=== PATIENT | female | born 1965 | race Two or more races ===

== ENCOUNTER → 2016-07-05 | Outpatient (CLI) | payer BC ==
[~2016-07-05] VITALS: Ht 8 cm; Wt 82.6 kg
[~2016-07-05] MED LIST: SYNTHROID150 MCG ORAL
[2016-07-05 15:33] VITALS: BP 110/59
--- NOTE | 2016-07-05 15:55 | GI Initial Consult Note ---
History of Present Illness General Date patient seen: Jul 05, 2016 Time patient seen: 15:49 Referring physician: ZEESHAN Reason for Consultation: LOWER ABDOMINAL / RECTAL PAIN Present Illness HPI 51 year old female patient referred by Dr. Colon for evaluation of lower abdominal pain associated with painful bowel movements with no noted melena nor hematochezia. The patient presents today c/o of lower abdominal pain, tender to touch associated with nausea and vomiting. The patient states she was previously on a diabetic medication that caused her pancreas to become inflame and cause her abdominal pain. She also complains of weakness in her left arm only. C/o of memory loss as well. States she has had an APCT done 4 days ago at [facility]. No prior history of colonoscopy. Home Meds Reported Medications Levothyroxine Sodium* (SYNTHROID*) 150 Mcg Tablet, 225 MCG ORAL DAILY, TAB Take in the morning on an empty stomach, at least 30 minutes before food. 07/05/16 Med list reviewed/reconciled: Yes Allergies: Coded Allergies: No Known Allergies (Unverified , 07/05/16) Patient History History Provided By: Patient PMH Narrative Arthritis Hypothyroidism Past Surgical History: none Social History: Reports: other - coffee, Denies: alcohol use, drug use, smoking Review of Systems All Other Systems: negative except mentioned in HPI Physical Exam Vital Signs Date Time Temp Pulse Resp B/P Pulse Ox O2 Delivery O2 Flow Rate FiO2 07/05/16 15:33 97.4 60 16 110/59 96 Sp02 EP Interpretation: reviewed General Appearance: alert Head: normocephalic EENT: PERRL/EOMI, normal ENT inspection Neck: supple Respiratory: normal breath sounds, no respiratory distress Cardiovascular: normal rate Gastrointestinal: normal inspection, non tender, soft Rectal: deferred Musculoskeletal: normal inspection Neurologic: normal inspection, alert, oriented x3, responsive Psychiatric: normal inspection, judgement/insight normal, memory normal Skin: normal inspection, normal color, no rash, warm/dry Lymphatic: normal inspection, no adenopathy GI: Plan Problems: (1) Colonoscopy planned (2) Rectal pain (3) Arthritis (4) Hypothyroidism (5) Nausea & vomiting Plan patient will be contacted for colonoscopy pending prior authorization. - CLD and [employer] prep instructions given and acknowledged. obtain APCT from [facility]. Seen with Dr. Vosoghi. Thank you for referring this patient. Haney,Merry Luisito N.P. Jul 05, 2016 15:55
== END | disposition home or self-care (01) ==
LOC: PAN 13:14
DX: R11.2 Nausea with vomiting, unspecified (principal); E03.9 Hypothyroidism, unspecified; K62.89 Other specified diseases of anus and rectum; M19.90 Unspecified osteoarthritis, unspecified site; R10.30 Lower abdominal pain, unspecified; R53.1 Weakness
CPT/HCPCS: 99201

== ENCOUNTER 2016-08-11 06:40 | Day surgery (SDC) | payer BC ==
[~2016-08-11] VITALS: Ht 165.1 cm; Wt 81.6 kg
[2016-08-11] VITALS (9 sets, daily range): BP systolic 98–119; BP diastolic 52–63
--- NOTE | 2016-08-11 06:48 | Anethesia Preoperative Eval ---
Anesthesia Pre-op PMH/ROS General Date of Evaluation: August 11, 2016 Anesthesiologist: stephanie ASA Score: ASA 2 Mallampati Score Class I : Soft palate, uvula, fauces, pillars visible Class II: Soft palate, uvula, fauces visible Class III: Soft palate, base of uvula visible Class IV: Only hard plate visible Mallampati Classification: Class II Surgeon: adrianna Diagnosis: anemia Surgical Procedure: colonoscopy Anesthesia History: none Social History: smoking - never smoked Family History: no anesthesia problems Allergies: Coded Allergies: No Known Allergies (Unverified , 07/05/16) Medications: see eMAR Past Medical History Gastrointestinal/Genitourinary: Reports: other - nausea, vomiting Endocrine: Reports: hypothyroidism Hematology/Immune: Reports: anemia Anesthesia Pre-op Phys. Exam Physician Exam Constitutional: NAD Neurologic: CN 2-12 intact Cardiovascular: RRR Respiratory: CTA Gastrointestinal: S/NT/ND Airway Exam Mallampati Score: Class II MO: full Neck: supple ROM: full Teeth: intact Anesthesia Pre-op A/P Studies Pre-op Studies: EKG - sinus bradycardiac Risk Assessment & Plan Assessment: anemia Plan: colonoscopy Status Change Before Surgery: No Pre-Antibiotics Drug: KETAN Stafford August 11, 2016 06:48
[2016-08-11] MEDS ORDERED: DiphenhydrAMINE 50mg/ml Inj IVP PRN (07:30)
[2016-08-11] MEDS ORDERED: Atropine Inj 1mg/10ml Syr IV PRN (07:30)
[2016-08-11] MEDS ORDERED: Hydromorphone 0.5mg/0.5ml inj IVP PRN (07:30)
--- NOTE | 2016-08-11 07:52 | Immediate Post-Op Evaluation ---
Immediate Post-Op Evalulation Immediate Post-Op Evalulation Date of Evaluation: August 11, 2016 IV Fluids: 0.9 ns 650ml Blood Products: na Estimated Blood Loss: negligible Blood Pressure Systolic: 106 Blood Pressure Diastolic: 52 Pulse Rate: 56 Respiratory Rate: 18 O2 Sat by Pulse Oximetry: 99 Temperature (Fahrenheit): 97.2 Pain Score (1-10): 0 Nausea: No Vomiting: No Complications none Patient Status: awake, reacts, patent Hydration Status: adequate Drug: KETAN Stafford August 11, 2016 07:52
[2016-08-11] MEDS ORDERED: Lidocaine 1% MPF 10mg/ml 5ml ONE (08:00)
[2016-08-11] MEDS ORDERED: Propofol 10mg/ml 20ml IV ONE (08:00)
--- NOTE | 2016-08-11 08:29 | Pre-Procedure Note/Attestation ---
Pre-Procedure Note/Attestation Complete Prior to Procedure Planned Procedure: not applicable Procedure Narrative: colonoscopy Indications for Procedure Pre-Operative Diagnosis: screening Attestation I attest that I discussed the nature of the procedure; its benefits; risks and complications; and alternatives (and the risks and benefits of such alternatives ), prior to the procedure, with the patient (or the patient's legal sales representative metals). I attest that, if there was a reasonable possibility of needing a blood transfusion, the patient (or the patient's legal sales representative metals) was given the [facility] standardized written summary, pursuant to the Norberto Langeloth Blood Safety Act ([place] Health and Safety Code # 1645, as amended). I attest that I re-evaluated the patient just prior to the surgery and that there has been no change in the patient's H&P, except as documented below: CAROLYNE DELEON August 11, 2016 08:29
--- NOTE | 2016-08-11 08:30 | Short Stay Surgery H&P ---
History of Present Illness History of Present Illness Chief Complaint see recent consult note HPI Shirley Coello is a 51 year old female who was admitted on for Rectal Pain Patient History Allergies: Coded Allergies: No Known Allergies (Unverified , 07/05/16) PAST MEDICAL HISTORY: Past Surgeries: Social History: Medication History Scheduled Levothyroxine Sodium* (Synthroid*), 225 MCG ORAL DAILY, (Reported) Physical Exam Vital Signs Last Vital Signs Date Time Temp Pulse Resp B/P Pulse Ox O2 Delivery O2 Flow Rate FiO2 08/11/16 07:20 98.0 59 18 107/62 94 Room Air Plan Attestation Are the patient's medical conditions optimized for surgery? CAROLYNE DELEON August 11, 2016 08:30
--- NOTE | 2016-08-11 08:53 | Endoscopy Procedure Note ---
Endoscopy Procedure Note Indication for Procedure: screening Procedures Performed: colonoscopy Operative Findings/Diagnosis: 3 polyps Specimen: yes Pt Tolerated Procedure Well: Yes Estimated Blood Loss: none Anesthesiologist: hector Anesthesia: MAC Implant(s) used?: No 50 yrs or older w/o bx or poly: No 10yrs. F/U not recommended: Yes If not recommended, why?: Above average risk 10 yrs. F/U needed: Yes 18 years or older w/prev. colo: No CAROLYNE DELEON August 11, 2016 08:53
--- NOTE | 2016-08-11 09:07 | 48 Hour Post Anesthesia Eval ---
Post Anesthesia Evaluation Procedure: colonoscopy Date of Evaluation: August 11, 2016 Blood Pressure Systolic: 106 0: 53 Pulse Rate: 56 Respiratory Rate: 18 Temperature (Fahrenheit): 97.2 O2 Sat by Pulse Oximetry: 99 Airway: patent Nausea: No Vomiting: No Pain Intensity: 0 Hydration Status: adequate Cardiopulmonary Status: stable Mental Status/LOC: patient returned to baseline Post-Anesthesia Complications: none Follow-up care needed: N/A KETAN EDGE August 11, 2016 09:07
--- NOTE | 2016-08-11 11:33 | Procedure Note ---
DATE OF PROCEDURE: 08/11/2016 SURGEON: Chad Wu M.D. ANESTHESIOLOGIST: Yaima Richey M.D. PROCEDURE: Colonoscopy with biopsy. INSTRUMENT: Olympus adult flexible colonoscope. INDICATION: Screening colonoscopy evaluation. REASON FOR PROCEDURE: The procedure, risks, benefits, and possible consequences, including hemorrhage, aspiration, perforation and infection, and alternative treatments, were explained to the patient/legal guardian by Dr. Chad Wu and the patient/legal guardian understood and accepted these risks. DESCRIPTION OF PROCEDURE: After informed consent was obtained and the patient was adequately sedated. First, a rectal examination was performed showed positive for external and internal hemorrhoids. Then, the scope was advanced from the rectum into the cecum, then subsequently in the terminal ileum. Quality of prep was good. The patient had total of 3 diminutive polyps, 2 in the ascending colon, 1 in the sigmoid colon, which was removed with cold biopsy forceps technique. The patient had some scattered diverticulosis in the left colon. Retroflexion of rectum showed evidence of internal hemorrhoids, medium sized nonbleeding. FINDINGS: 1. Three colonic polyps removed, see above for details. 2. Diverticulosis. 3. Internal hemorrhoids. RECOMMENDATIONS: 1. Follow up biopsies and treat accordingly. 2. Given 3 polyps I recommended repeat colonoscopy in three years. Chad Wu M.D. DR: Simran JOB#: [id number] CC:
--- NOTE | 2016-08-15 08:03 | Cardiology Report ---
APPROVED REPORT EKG Measurement Heart [id number] Poor data quality, interpretation may be adversely affected Sinus bradycardia Otherwise normal ECG
== END 2016-08-11 10:35 | disposition home or self-care (01) ==
LOC: GAS 06:40
DX: Z12.11 Encounter for screening for malignant neoplasm of colon (principal); D12.2 Benign neoplasm of ascending colon; D12.5 Benign neoplasm of sigmoid colon; K64.4 Residual hemorrhoidal skin tags; K64.8 Other hemorrhoids; K57.30 Diverticulosis of large intestine without perforation or abscess without bleeding; E03.9 Hypothyroidism, unspecified; D64.9 Anemia, unspecified
CPT/HCPCS: 45380; 93005; J2704; 94003; 94150

== ENCOUNTER 2017-01-22 14:56 | Outpatient (CLI) | payer BC ==
--- NOTE | 2017-02-22 15:46 | GI Progress Note ---
Assessment/Plan Problems: (1) Nausea & vomiting ICD Codes: R11.2 - Nausea with vomiting, unspecified SNOMED: 74130449 (2) Rectal pain ICD Codes: K62.89 - Other specified diseases of anus and rectum SNOMED: 01383688 (3) Hypothyroidism ICD Codes: E03.9 - Hypothyroidism, unspecified SNOMED: 51727323 Status: stable Status Narrative Seen with Dr. Wu. Assessment/Plan s/p colonoscopy FINDINGS: 1. Three colonic polyps removed, see above for details. 2. Diverticulosis. 3. Internal hemorrhoids. RECOMMENDATIONS: Follow up biopsies and treat accordingly. >> remarkable stool >> positive for blastocystis pending treatment RTC PRN Given 3 polyps I recommended repeat colonoscopy in three years. LATE ENTRY NOTE Subjective Gastrointestinal/Abdominal: Reports: diarrhea, nausea, vomiting Objective General Appearance: WD/WN, no apparent distress, alert Cardiovascular: normal rate Respiratory/Chest: normal breath sounds, no respiratory distress Abdominal Exam: normal bowel sounds, non tender, soft Extremities: normal range of motion, non-tender Merry Haney N.P. Feb 22, 2017 15:46
== END 2017-01-22 15:20 | disposition home or self-care (01) ==
LOC: PAN 14:56
DX: R11.2 Nausea with vomiting, unspecified (principal); K62.89 Other specified diseases of anus and rectum; E03.9 Hypothyroidism, unspecified; K57.90 Diverticulosis of intestine, part unspecified, without perforation or abscess without bleeding; K63.5 Polyp of colon; K64.8 Other hemorrhoids
CPT/HCPCS: 99211